=== PATIENT | female | born 1935 | race Caucasian/White ===

== ENCOUNTER → 2017-02-16 | Outpatient (CLI) | payer OTHER | END | disposition home or self-care (01) | LOC: PCVCIMAG 13:19 | PROVIDERS: ATTEND Internal Medicine Cardiovascular Disease | DX: I08.1 Rheumatic disorders of both mitral and tricuspid valves (principal); I48.91 Unspecified atrial fibrillation; I10 Essential (primary) hypertension | CPT/HCPCS: 80061; 93005; 93306; G0463 ==

== ENCOUNTER → 2018-02-20 | Outpatient (CLI) | payer OTHER | END | disposition home or self-care (01) | LOC: PCVCCLINIC 10:11 | DX: I48.91 Unspecified atrial fibrillation (principal); E78.4 Other hyperlipidemia; Z98.890 Other specified postprocedural states; Z79.899 Other long term (current) drug therapy | CPT/HCPCS: 80061; 93005; G0463 ==

== ENCOUNTER → 2019-02-12 | Outpatient (CLI) | payer OTHER | END | disposition home or self-care (01) | LOC: PCVCCLINIC 10:00 | PROVIDERS: ATTEND Internal Medicine Cardiovascular Disease | DX: I48.91 Unspecified atrial fibrillation (principal); E78.00 Pure hypercholesterolemia, unspecified; D68.59 Other primary thrombophilia; Z98.890 Other specified postprocedural states | CPT/HCPCS: 36415; 80061; 93005; G0463 ==

== ENCOUNTER → 2019-09-04 | Outpatient (CLI) | payer OTHER ==
--- NOTE | 2019-09-05 12:15 | PCVCIMAG ---
APPROVED REPORT Study performed: 09/04/2019 08:55:15 EXAM: Comprehensive 2D, Doppler, and color-flow Echocardiogram Patient Location: Echo lab Status: routine BSA: 1.57 HR: 67 bpmBP: 116/82 mmHg Rhythm: Atrial Fibrillation Other Information Study Quality: Adequate Risk Factors: Cardiac Risk Factors: Hyperlipidemia Indications Atrial Fibrillation mitral valve repair 2D Dimensions IVSd: 11.97 (7-11mm) LVDd: 40.18 mm PWd: 10.60 (7-11mm)Ascending Ao: 31.34 (22-36mm) LVDs: 30.73 (25-40mm) Left Atrium: 45.88 (27-40mm) Aortic Root: 27.87 mm LV Single Plane 4CH: 46.62 % LV Single Plane 2CH: 54.82 % Biplane EF: 50.1 % Volumes Left Atrial Volume (Systole) Single Plane 4CH: 112.81 mLSingle Plane 2CH: 158.19 mL LA ESV Index: 91.00 mL/m2 Aortic Valve AoV Peak César.: 1.02 m/s AO Peak Gr.: 4.18 mmHgLVOT Max P.78 mmHg LVOT Max V: 0.67 m/s Pulmonary Valve PV Peak César.: 0.71 m/sPV Peak Gr.: 2.04 mmHg Tricuspid Valve TR Peak César.: 2.79 m/s TR Peak Gr.: 31.24 mmHg Left Ventricle The left ventricle is normal size. There is normal LV segmental wall motion. Borderline concentric left ventricular hypertrophy. Left ventricular systolic function is normal. The left ventricular ejection fraction is within the normal range. LVEF is 50%. This study is not technically sufficient to allow evaluation of the LV diastolic function due to atrial fibrillation. Right Ventricle The right ventricle is mildly dilated. The right ventricular systolic function is normal. Atria Left atrium is severely dilated. Right atrium is severely dilated. Aortic Valve The aortic valve is normal in structure. Trace aortic regurgitation. There is no aortic valvular stenosis. Mitral Valve Moderate mitral annular calcification. Trace mitral regurgitation. No evidence of mitral valve stenosis. Tricuspid Valve The tricuspid valve is normal in structure. Moderate to severe tricuspid regurgitation with PAP of 41 mmHg. Pulmonic Valve The pulmonary valve is normal in structure. There is mild-moderate pulmonic valvular regurgitation. Great Vessels The aortic root is normal in size. IVC is normal in size and collapses >50% with inspiration. Pericardium There is no pericardial effusion. There is no pleural effusion.
== END | disposition home or self-care (01) ==
LOC: PCVCIMAG 09:01
PROVIDERS: ATTEND Internal Medicine Cardiovascular Disease
DX: I08.8 Other rheumatic multiple valve diseases (principal); I48.91 Unspecified atrial fibrillation; E78.00 Pure hypercholesterolemia, unspecified; D68.59 Other primary thrombophilia; Z98.890 Other specified postprocedural states
CPT/HCPCS: 93306